=== PATIENT | male | born 1950 | race Two or more races ===

== ENCOUNTER 2019-06-24 11:44 | Emergency (ER) | payer OTHER, MEDICAID ==
[~2019-06-24] VITALS: Ht 175.3 cm; Wt 74.4 kg
--- NOTE | 2019-06-24 11:50 | NUR ---
[id number], 69 YEAR OLD MALE C/O SYNCOPAL EPISODE PER DAUGHTER LASTED FOR 30-45 SECS BS 98, DENIES ANY PAIN . ALERT AND OREINTED X3, BREATHING EVEN AND UNLABORED WITH NO DISTRESS NOTED. SKIN INTACT AND WARM TO TOUCH. WAITING TO BE SEEN BY
--- NOTE | 2019-06-24 11:52 | NUR ---
[employer] AT BEDSIDE
[2019-06-24 12:08] LABS: BASOPHILS % (AUTO) 0.3 % (0.0-2.0); EOSINOPHILS % (AUTO) 1.4 % (0.0-6.0); HEMATOCRIT 36 % (39-51); HEMOGLOBIN 12.5 g/dL (13.5-17.5); LYMPHOCYTES % (AUTO) 37.8 % (20.0-44.0); MEAN CORPUSCULAR HGB CONC 35 g/dl (31.0-36.0); MEAN CORPUSCULAR VOLUME 97 fL (80-96); MONOCYTES # (AUTO) 0.5 /CMM (0.1-1.30); MONOCYTES % (AUTO) 9.4 % (2.0-12.0); NEUTROPHILS # (AUTO) 2.8 /CMM (1.8-8.9); NEUTROPHILS % (AUTO) 51.1 % (43.0-81.0); PLATELET COUNT (AUTO) 185 /CMM (150-450); RED BLOOD CELL COUNT(AUTO) 3.73 MIL/uL (4.5-6.0); WHITE BLOOD COUNT (AUTO) 5.4 K/uL (4.3-11.0)
[2019-06-24 12:16] LABS: CALCIUM, SERUM 9.4 mg/dL (8.5-10.1); CARBON DIOXIDE 25 mmol/L (21-32); CHLORIDE 107 mmol/L (98-107); GLUCOSE 93 mg/dL (74-106); POTASSIUM 3.7 mmol/L (3.5-5.1); SODIUM SERUM 141 mmol/L (136-145); UREA NITROGEN, BLOOD 13 mg/dL (7-18)
--- NOTE | 2019-06-24 13:41 | NUR ---
Patient discharged to home in stable condition. Written and verbal after care instructions given. Patient verbalizes understanding of instruction. IV removed. Catheter intact and site benign. Pressure and 4x4 applied to site. No bleeding noted.
[2019-06-24 14:05] VITALS: BP 132/77
== END 2019-06-24 13:55 | disposition home or self-care (01) ==
LOC: ER 11:47
DX: R56.9 Unspecified convulsions (principal); F12.10 Cannabis abuse, uncomplicated; R42 Dizziness and giddiness; E78.5 Hyperlipidemia, unspecified; Z86.19 Personal history of other infectious and parasitic diseases
CPT/HCPCS: 36415; 70450-TC; 71045-TC; 80048-TC; 84484-TC; 85025-TC